=== PATIENT | female | born 1990 | race African-American/Black ===

== ENCOUNTER 2019-07-23 20:25 | Inpatient (IN) ==
[2019-07-23] MEDS ORDERED: ONDANSETRON 4 MG/2 ML VIAL IV PRN (20:40)
[2019-07-23] MEDS ORDERED: MEPERIDINE 50 MG/1 ML VIAL IV PRN (20:40)
[2019-07-23] MEDS ORDERED: BUTORPHANOL 2 MG/ML VIAL IV PRN (20:40)
[2019-07-23 21:14] LABS: Basophils % 0.3 % (0.0-0.8); Eosinophils % 0.5 % (0.00-10.9); Hematocrit 39.9 VOL% (35.7-47.0); Hemoglobin 12.6 GM/DL (12.0-16.0); Immature Granulocytes % 1.4 %; Immature Granulocytes Absolute 0.08 #; Lymphocytes # 1.8 10*3/uL (1.4-4.0); Lymphocytes % 30.3 % (21.3-54.2); Mean Corpuscular HGB Conc 31.6 GM/DL (32-36); Mean Corpuscular Volume 72.3 FL (87-102); Mean Platelet Volume 12.4 FL (9.6-12.0); Monocytes % 9.7 % (1.7-12.7); Neutrophils % 57.8 % (38.7-73.9); Platelet Count 235 T/CUMM (130-400); Red Blood Count 5.52 MC/CUMM (3.8-5.5); Red Cell Distribution Width 14.9 % (9.3-17.3); White Blood Count 5.8 T/CUMM (4-12)
[2019-07-23 21:25] LABS: INR 0.9; PT Patient Result 9.4 SECS (9.6-12.2); Partial Thromboplastin Time 26.3 SECS (20.8-36.0)
[2019-07-23 21:29] LABS: Alanine Aminotransferase 15 U/L (13-56); Albumin 2.7 G/DL (3.4-5.0); Alkaline Phosphatase 223 U/L (45-117); Aspartate Amino Transferase 13 U/L (0-37); Bilirubin,Total < 0.39 MG/DL (0.2-1.0); Blood Urea Nitrogen 7 MG/DL (7-18); Calcium 9.6 MG/DL (8.5-10.1); Estimated Glom Filtration Rate 143 ML/MIN; Glucose 136 MG/DL (74-106); Total Protein 7.4 G/DL (6.4-8.3)
[2019-07-23] MEDS: LACTATED RINGERS 1,000 ML IV SCH (21:33)
[2019-07-23] MEDS ORDERED: LABETALOL 100 MG TABLET ONE (21:34)
[2019-07-24] MEDS: LACTATED RINGERS 1,000 ML IV SCH ×2 (06:19→17:13)
[2019-07-24] MEDS ORDERED: DINOPROSTONE VAG GEL 10 MG SYRINGE VAG ONE (08:09)
[2019-07-24] MEDS ORDERED: hydrOXYzine HCL 25 MG/1 ML VIAL IM PRN (10:13)
[2019-07-24] MEDS ORDERED: FAMOTIDINE 20 MG/2 ML VIAL IV ONE (10:13)
[2019-07-24] MEDS ORDERED: diphenhydrAMINE 50 MG/1 ML VIAL IV PRN ×2 (10:13)
[2019-07-24] MEDS ORDERED: LACTATED RINGERS 1,000 ML IV ONE (10:13)
[2019-07-24] MEDS ORDERED: CITRIC ACID/SODIUM CITRATE 30 ML UDCUP PO ONE (10:13)
[2019-07-24] MEDS ORDERED: PROMETHAZINE 25 MG/1 ML VIAL IM ONE (10:13)
[2019-07-24] MEDS ORDERED: NALOXONE 0.4 MG/ML VIAL IV PRN (10:13)
[2019-07-24] MEDS ORDERED: fentaNYL 2 MCG/ROPIV 0.2% EPID 100 ML EPIDURAL SCH (10:30)
[2019-07-24] MEDS: ePHEDrine 50 MG/ML AMP IV PRN ×2 (11:32→12:02)
[2019-07-24 11:42] LABS: Apearance,Urine CLEAR (Clear); Bilirubin,Urine Negative (Negative); Blood, Urine Negative (Negative); Glucose,Urine (UA) Negative (Negative); Ketones,Urine 5 mg/dL (Negative); Mucus,Urine Occasional /LPF (Occasional); Nitrite,Urine Negative (Negative); Protein,Urine Negative; RBC,Urine 1 /HPF (0-4); Squamous Epithelial Cell,Urine Occasional /HPF (0-10); Urine Color Yellow (Yellow); Urine Specific Gravity 1.021 (1.001-1.035); Urine Urobilinogen < 2.0 EU/DL (0.2-1.0); WBC,Urine <1 /HPF (0-6)
[2019-07-24] MEDS ORDERED: OXYTOCIN/LR 20 UNIT/1,000 ML BAG IV SCH (16:45)
[2019-07-24] MEDS ORDERED: ceFAZolin 3,000 MG in SYRINGE 1 EACH IV ONE (16:57)
[2019-07-24] MEDS ORDERED: OXYTOCIN 10 UNIT/ML VIAL IM ONE (16:59)
[2019-07-24] MEDS ORDERED: OXYTOCIN/LR 30 UNIT/1,000 ML BAG IV ONE (16:59)
[2019-07-24] MEDS ORDERED: CARBOPROST TROMETHAMINE 250 MCG/ML AMP IM ONE (17:15)
[2019-07-24] MEDS ORDERED: METHYLERGONOVINE 0.2 MG/1 ML AMP ONE (17:15)
[2019-07-24] MEDS ORDERED: miSOPROStoL 200 MCG TABLET ONE (17:15)
[2019-07-24 18:57] LABS: Cord Arterial Blood HCO3 20.5 MMOL/L
[2019-07-24 19:00] LABS: Cord Venous Blood HCO3 22.8 MMOL/L; Cord Venous Blood PCO2 48.5 MMHG
[2019-07-24 19:01] LABS: Cord Venous Blood PO2 17.6
[2019-07-24] MEDS ORDERED: MORPHINE 10 MG/10 ML VIAL ONE (19:15)
[2019-07-24] MEDS ORDERED: LIDOCAINE MPF 2% /EPI 20 ML VIAL ONE (19:15)
[2019-07-24] MEDS ORDERED: HYDROmorphone 2 MG/1 ML VIAL IV PRN (19:23)
[2019-07-24] MEDS ORDERED: ACETAMINOPHEN 325 MG TABLET PO PRN (19:36)
[2019-07-24] MEDS ORDERED: MAGNESIUM HYDROXIDE SUSP 30 ML UDCUP PO PRN (19:36)
[2019-07-24] MEDS ORDERED: RHO(D) IMMUNE GLOBULIN 300 MCG SYRINGE IM ONE (19:36)
[2019-07-24] MEDS ORDERED: OXYTOCIN/LR 20 UNIT/1,000 ML BAG IV ONE (19:36)
[2019-07-24] MEDS ORDERED: LACTATED RINGERS 1,000 ML IV SCH (20:00)
[2019-07-24] MEDS: DOCUSATE SODIUM 100 MG CAPSULE PO SCH (23:38)
[2019-07-24] MEDS: IBUPROFEN 800 MG TABLET PO PRN (23:38)
[2019-07-25] MEDS: ONDANSETRON 4 MG/2 ML VIAL IV PRN ×2 (00:45→06:22)
[2019-07-25] MEDS: ceFAZolin 1,000 MG in SYRINGE 1 EACH IV SCH ×2 (02:12→10:08)
[2019-07-25 03:36] LABS: Basophils % 0.1 % (0.0-0.8); Hematocrit 34.4 VOL% (35.7-47.0); Hemoglobin 10.8 GM/DL (12.0-16.0); Immature Granulocytes % 0.4 %; Immature Granulocytes Absolute 0.04 #; Lymphocytes # 1.2 10*3/uL (1.4-4.0); Lymphocytes % 12.3 % (21.3-54.2); Mean Corpuscular HGB Conc 31.4 GM/DL (32-36); Mean Platelet Volume 13.1 FL (9.6-12.0); Monocytes % 7.8 % (1.7-12.7); Neutrophils % 79.4 % (38.7-73.9); Platelet Count 232 T/CUMM (130-400); Red Blood Count 4.71 MC/CUMM (3.8-5.5); Red Cell Distribution Width 14.7 % (9.3-17.3)
[2019-07-25] MEDS ORDERED: diphenhydrAMINE 2% CREAM 28 GM TUBE TOP PRN (05:29)
[2019-07-25] MEDS: METOCLOPRAMIDE 10 MG TABLET PO SCH ×4 (09:52→23:49)
[2019-07-25] MEDS: MULTIVITAMIN (PRENATAL) TABLET PO SCH (09:53)
[2019-07-25] MEDS: DOCUSATE SODIUM 100 MG CAPSULE PO SCH ×2 (09:53→20:20)
[2019-07-25 11:35] LABS: Basophils % 0.1 % (0.0-0.8); Hematocrit 33.5 VOL% (35.7-47.0); Hemoglobin 10.5 GM/DL (12.0-16.0); Immature Granulocytes % 0.5 %; Immature Granulocytes Absolute 0.05 #; Lymphocytes # 1.4 10*3/uL (1.4-4.0); Lymphocytes % 14.3 % (21.3-54.2); Mean Corpuscular HGB Conc 31.3 GM/DL (32-36); Mean Corpuscular Volume 73.3 FL (87-102); Mean Platelet Volume 12.1 FL (9.6-12.0); Monocytes % 8.4 % (1.7-12.7); Neutrophils % 76.7 % (38.7-73.9); Platelet Count 232 T/CUMM (130-400); Red Blood Count 4.57 MC/CUMM (3.8-5.5); White Blood Count 9.5 T/CUMM (4-12)
[2019-07-25] MEDS ORDERED: HydrOXYzine PAMOATE 25 MG CAPSULE PO PRN (16:20)
[2019-07-25] MEDS: IBUPROFEN 800 MG TABLET PO PRN (16:23)
[2019-07-25] MEDS: MAGNESIUM HYDROXIDE SUSP 30 ML UDCUP PO SCH ×2 (17:55→20:20)
[2019-07-25] MEDS ORDERED: METOCLOPRAMIDE 10 MG/10 ML UDCUP PO SCH (18:00)
[2019-07-25] MEDS: SIMETHICONE CHEW 80 MG TABLET PO PRN (20:20)
[2019-07-26] MEDS: IBUPROFEN 800 MG TABLET PO PRN (05:06)
[2019-07-26] MEDS: METOCLOPRAMIDE 10 MG TABLET PO SCH (06:30)
[2019-07-26] MEDS: MAGNESIUM HYDROXIDE SUSP 30 ML UDCUP PO SCH (09:00)
[2019-07-26] MEDS: MULTIVITAMIN (PRENATAL) TABLET PO SCH (09:00)
[2019-07-26] MEDS: DOCUSATE SODIUM 100 MG CAPSULE PO SCH (09:00)
[2019-07-26 09:15] VITALS: BP 144/82
[2019-07-26] MEDS: SIMETHICONE CHEW 80 MG TABLET PO PRN (09:17)
== END 2019-07-26 11:20 | disposition home or self-care (01) | DRG 788 ==
LOC: N.LD 20:25 → N.OB 07-24 23:34
PROVIDERS: ADMIT Obstetrics & Gynecology; ATTEND Obstetrics & Gynecology
PROC: LDCSECT (ICD-10-PCS; 2019-07-24 18:05)

== ENCOUNTER 2021-01-14 00:06 | Inpatient (IN) ==
[~2021-01-14 00:06] MED LIST: CITRIC ACID/SODIUM CITRATE 30 ML UDCUP PO ONE; FAMOTIDINE 20 MG/2 ML VIAL IV ONE; ceFAZolin 2,000 MG/50 ML DUPLEX IV ONE
[2021-01-14] MEDS ORDERED: PROMETHAZINE 25 MG/1 ML VIAL IM ONE (00:23)
[2021-01-14] MEDS ORDERED: BUTORPHANOL 2 MG/ML VIAL IM ONE (00:23)
[2021-01-14 00:32] LABS: Bacteria,Urine Moderate /HPF (Few); Bilirubin,Urine Negative (Negative); Blood, Urine Negative (Negative); Glucose,Urine (UA) Negative (Negative); Ketones,Urine Negative (Negative); Mucus,Urine Occasional /LPF (Occasional); Nitrite,Urine Negative (Negative); Protein,Urine Negative; Squamous Epithelial Cell,Urine Many /HPF (0-10); Urine Appearance CLOUDY (Clear); Urine Color Yellow (Yellow); Urine Specific Gravity 1.023 (1.001-1.035); Urine Urobilinogen < 2.0 EU/DL (0.2-1.0)
[2021-01-14 00:33] LABS: INR 0.9; PT Patient Result 9.8 SECS (10.5-12.0); Partial Thromboplastin Time 26.6 SECS (23.9-33.8)
[2021-01-14 00:44] LABS: Alanine Aminotransferase 12 U/L (13-56); Albumin 2.7 G/DL (3.4-5.0); Alkaline Phosphatase 119 U/L (45-117); Aspartate Amino Transferase 14 U/L (0-37); Bilirubin,Total < 0.39 MG/DL (0.2-1.0); Blood Urea Nitrogen 9 MG/DL (7-18); Calcium 8.8 MG/DL (8.5-10.1); Carbon Dioxide 24 MMOL/L (21-32); Estimated Glom Filtration Rate 166 ML/MIN; Glucose 86 MG/DL (74-106); Sodium 136 MMOL/L (136-145); Total Protein 7.3 G/DL (6.4-8.2)
[2021-01-14 00:50] LABS: Basophils % 0.2 % (0.0-0.8); Eosinophils % 0.5 % (0.00-10.9); Hematocrit 34.1 VOL% (35.7-47.0); Hemoglobin 10.6 GM/DL (12.0-16.0); Immature Granulocytes % 0.9 %; Immature Granulocytes Absolute 0.05 #; Lymphocytes # 1.6 10*3/uL (1.4-4.0); Lymphocytes % 27.4 % (21.3-54.2); Mean Corpuscular HGB Conc 31.1 GM/DL (32-36); Mean Corpuscular Volume 67.3 FL (87-102); Monocytes % 10.4 % (1.7-12.7); Neutrophils % 60.6 % (38.7-73.9); Platelet Count 256 T/CUMM (130-400); Red Blood Count 5.07 MC/CUMM (3.8-5.5); Red Cell Distribution Width 16.9 % (9.3-17.3); White Blood Count 5.9 T/CUMM (4-12)
[2021-01-14] MEDS ORDERED: FAMOTIDINE 20 MG/2 ML VIAL IV ONE ×3 (02:00→14:30)
[2021-01-14] MEDS ORDERED: CITRIC ACID/SODIUM CITRATE 30 ML UDCUP PO ONE ×3 (02:00→14:30)
[2021-01-14 02:53] LABS: Bacteria,Urine Occasional /HPF (Few); Bilirubin,Urine Negative (Negative); Blood, Urine Negative (Negative); Glucose,Urine (UA) Negative (Negative); Ketones,Urine Negative (Negative); Mucus,Urine Occasional /LPF (Occasional); Nitrite,Urine Negative (Negative); Protein,Urine Negative; RBC,Urine 3 /HPF (0-4); Squamous Epithelial Cell,Urine Occasional /HPF (0-10); Urine Appearance CLEAR (Clear); Urine Color Yellow (Yellow); Urine Specific Gravity 1.024 (1.001-1.035); Urine Urobilinogen < 2.0 EU/DL (0.2-1.0)
[2021-01-14] MEDS ORDERED: BUTORPHANOL 2 MG/ML VIAL IV PRN (03:31)
[2021-01-14] MEDS: LACTATED RINGERS 1,000 ML IV SCH ×2 (03:40→05:43)
[2021-01-14] MEDS ORDERED: OXYTOCIN 10 UNIT/ML VIAL IM ONE ×2 (05:10→14:30)
[2021-01-14] MEDS ORDERED: OXYTOCIN/LR 30 UNIT/1,000 ML BAG IV ONE (05:10)
[2021-01-14] MEDS ORDERED: ACETAMINOPHEN 500 MG TABLET PO ONE (12:26)
[2021-01-14] MEDS ORDERED: PHENYLEPHRINE 1 MG/10 ML SYRINGE IV ONE ×2 (15:38→16:01)
[2021-01-14] MEDS ORDERED: ONDANSETRON 4 MG/2 ML VIAL ONE ×3 (15:39→15:42)
[2021-01-14 16:04] LABS: Cord Arterial Blood HCO3 21.2 MMOL/L
[2021-01-14 16:07] LABS: Cord Venous Blood PCO2 43.3 MMHG; Cord Venous Blood PO2 24.5
[2021-01-14] MEDS ORDERED: RHO(D) IMMUNE GLOBULIN 300 MCG SYRINGE IM ONE (16:38)
[2021-01-14] MEDS ORDERED: OXYTOCIN/LR 20 UNIT/1,000 ML BAG IV ONE (16:38)
[2021-01-14] MEDS ORDERED: MAGNESIUM HYDROXIDE SUSP 30 ML UDCUP PO PRN (16:38)
[2021-01-14] MEDS ORDERED: SIMETHICONE CHEW 80 MG TABLET PO PRN (16:38)
[2021-01-14] MEDS ORDERED: ACETAMINOPHEN 325 MG TABLET PO PRN (16:38)
[2021-01-14] MEDS ORDERED: ONDANSETRON 4 MG/2 ML VIAL IV PRN (16:38)
[2021-01-14] MEDS ORDERED: IBUPROFEN 800 MG TABLET PO PRN (16:38)
[2021-01-14] MEDS ORDERED: LACTATED RINGERS 1,000 ML IV SCH (17:00)
[2021-01-14] MEDS: ACETAMINOPHEN 500 MG TABLET PO SCH ×2 (17:23→23:49)
[2021-01-14] MEDS: KETOROLAC 30 MG/1 ML VIAL IV SCH ×2 (17:24→23:02)
[2021-01-14] MEDS: DOCUSATE SODIUM 100 MG CAPSULE PO SCH (21:26)
[2021-01-15 00:49] LABS: Basophils % 0.1 % (0.0-0.8); Eosinophils % 0.2 % (0.00-10.9); Hemoglobin 9.3 GM/DL (12.0-16.0); Immature Granulocytes % 0.8 %; Immature Granulocytes Absolute 0.07 #; Lymphocytes # 1.7 10*3/uL (1.4-4.0); Lymphocytes % 19.2 % (21.3-54.2); Mean Corpuscular Volume 67.9 FL (87-102); Monocytes % 8.4 % (1.7-12.7); Neutrophils % 71.3 % (38.7-73.9); Red Blood Count 4.42 MC/CUMM (3.8-5.5)
[2021-01-15 00:50] LABS: White Blood Count 8.9 T/CUMM (4-12)
[2021-01-15 00:51] LABS: Platelet Count 198 T/CUMM (130-400)
[2021-01-15 01:24] LABS: Anisocytosis 2+; Microcytosis 2+; Platelet Estimate Normal
[2021-01-15 01:25] LABS: Elliptocytes 1+; Hypochromasia 2+; Polychromasia Few; Tear Drop Cells Few
[2021-01-15] MEDS: ACETAMINOPHEN 500 MG TABLET PO SCH (05:44)
[2021-01-15] MEDS: KETOROLAC 30 MG/1 ML VIAL IV SCH ×2 (05:45→11:58)
[2021-01-15 06:30] LABS: Basophils % 0.1 % (0.0-0.8); Eosinophils % 0.4 % (0.00-10.9); Hematocrit 26.1 VOL% (35.7-47.0); Hemoglobin 8.1 GM/DL (12.0-16.0); Immature Granulocytes % 0.8 %; Immature Granulocytes Absolute 0.06 #; Lymphocytes # 1.8 10*3/uL (1.4-4.0); Lymphocytes % 24.8 % (21.3-54.2); Mean Corpuscular Volume 67.6 FL (87-102); Monocytes % 10.3 % (1.7-12.7); Neutrophils % 63.6 % (38.7-73.9); Platelet Count 181 T/CUMM (130-400); Red Blood Count 3.86 MC/CUMM (3.8-5.5); Red Cell Distribution Width 16.8 % (9.3-17.3); White Blood Count 7.3 T/CUMM (4-12)
[2021-01-15 06:52] LABS: Hypochromasia 2+; Microcytosis 2+
[2021-01-15 06:53] LABS: Ovalocytes Few; Platelet Estimate Adequate; Polychromasia Slight; Target Cells Slight; Tear Drop Cells Slight
[2021-01-15] MEDS: METOCLOPRAMIDE 10 MG TABLET PO SCH ×2 (08:20→16:02)
[2021-01-15] MEDS: DOCUSATE SODIUM 100 MG CAPSULE PO SCH ×3 (08:21→20:36)
[2021-01-15] MEDS: FERROUS SULFATE 325 MG TABLET PO SCH ×2 (08:21→16:49)
[2021-01-15] MEDS: MULTIVITAMIN (PRENATAL) TABLET PO SCH (23:44)
[2021-01-16] MEDS: IBUPROFEN 800 MG TABLET PO PRN ×2 (01:16→07:47)
[2021-01-16] MEDS: DOCUSATE SODIUM 100 MG CAPSULE PO SCH (07:48)
[2021-01-16] MEDS: MULTIVITAMIN (PRENATAL) TABLET PO SCH (07:49)
[2021-01-16] MEDS: FERROUS SULFATE 325 MG TABLET PO SCH (07:50)
[2021-01-16 08:11] VITALS: BP 132/81
== END 2021-01-16 11:29 | disposition home or self-care (01) | DRG 785 ==
LOC: N.LD → N.OB 21:30
PROVIDERS: ADMIT Obstetrics & Gynecology; ATTEND Obstetrics & Gynecology